=== PATIENT | female | born 1940 | race Two or more races ===

== ENCOUNTER 2020-09-17 10:12 | Outpatient (CLI) | payer OTHER | END 2020-09-17 10:21 | disposition home or self-care (01) | LOC: RAD 10:12 | PROVIDERS: ATTEND Orthopaedic Surgery | DX: M25.562 Pain in left knee (principal); M25.561 Pain in right knee ==

== ENCOUNTER 2020-09-18 08:50 | Outpatient (CLI) | payer OTHER | END 2020-09-18 09:08 | disposition home or self-care (01) | LOC: LAB 08:50 | PROVIDERS: ATTEND Orthopaedic Surgery | DX: I10 Essential (primary) hypertension (principal); B95.62 Methicillin resistant Staphylococcus aureus infection as the cause of diseases classified elsewhere; Z76.89 Persons encountering health services in other specified circumstances ==

== ENCOUNTER → 2021-02-01 13:27 | Outpatient (CLI) | payer OTHER | END | disposition home or self-care (01) | LOC: NUCLEAR 13:15 | PROVIDERS: ATTEND Orthopaedic Surgery | DX: M81.0 Age-related osteoporosis without current pathological fracture (principal) ==

== ENCOUNTER 2021-02-05 08:22 | Outpatient (CLI) | payer OTHER | END 2021-02-05 08:27 | disposition home or self-care (01) | LOC: NUCLEAR 08:22 | PROVIDERS: ATTEND Pediatrics | DX: I73.9 Peripheral vascular disease, unspecified (principal) ==